=== PATIENT | female | born 1950 | race Caucasian/White ===

== ENCOUNTER 2022-02-10 05:26 | Inpatient (IN) | payer OTHER ==
[2022-02-04 10:37] LABS: CLARITY,URINE SLIGHTLY CLOUDY (Clear); COLOR,URINE YELLOW (Yellow); GLUCOSE, URINE NEGATIVE (Neg); KETONES,URINE NEGATIVE (Neg); LEUKOCYTE ESTERASE ,URINE NEGATIVE (Neg); NITRITES, URINE NEGATIVE (Neg); OCCULT BLOOD,URINE NEGATIVE (Neg); PH,URINE 6.5 (4.8-8.0); PROTEIN,URINE NEGATIVE (Neg); UROBILINOGEN,URINE 0.2 E.U/dL (0.2-1.0)
[2022-02-04 10:39] LABS: BASOPHILS # (AUTO) 0.1 X10'3 (0-0.2); BASOPHILS % (AUTO) 0.9 % (0-1); EOSINOPHILS # (AUTO) 0.1 X10'3 (0-0.9); EOSINOPHILS % (AUTO) 0.8 % (0-6); LYMPHOCYTES # (AUTO) 2.6 X10'3 (1.1-4.8); LYMPHOCYTES % (AUTO) 43.7 % (21-51); MEAN CORPUSCULAR HEMOGLOBIN 31.2 PG (27.0-31.0); MEAN CORPUSCULAR HGB CONC 33.6 g/dL (33.0-36.5); MEAN CORPUSCULAR VOLUME 92.8 FL (78-98); MEAN PLATELET VOLUME 10.4 FL (7.4-10.4); MONOCYTES # (AUTO) 0.6 X10'3 (0-0.9); MONOCYTES % (AUTO) 10.5 % (2-12); NEUTROPHILS # (AUTO) 2.6 X10'3 (1.8-7.7); NEUTROPHILS % (AUTO) 44.1 % (42-75); PRE OP HEMATOCRIT 43.6 % (35.0-45.0); PRE OP HEMOGLOBIN 14.7 g/dL (12.0-16.0); PRE OP PLATELET COUNT 164 X10'3 (140-440); RED CELL DISTRIBUTION WIDTH 13.7 % (11.5-14.5)
[2022-02-04 10:51] LABS: UA COLLECTION TYPE NON-SPECIFIED
[2022-02-04 10:57] LABS: SQUAMOUS EPITHELIAL CELL,UR FEW /LPF (FEW)
[2022-02-04 11:01] LABS: AMORPHOUS PHOSPHATES 3+; BACTERIA,URINE FEW /HPF (Neg); RBC,URINE 0-2 /HPF (0-2); WBC,URINE 0-4 /HPF (0-4)
[2022-02-04 11:03] LABS: ALBUMIN 3.8 G/DL (3.4-5.0); ALBUMIN/GLOBULIN RATIO 1.3 (1.1-1.5); ALKALINE PHOSPHATASE 124 IU/L (46-116); BLOOD UREA NITROGEN 19 MG/DL (7-18); BUN/CREATININE RATIO 18.3 (6.6-38.0); CALCIUM 9.3 MG/DL (8.5-10.1); CHLORIDE 105 MMOL/L (99-107); CREATININE 1.04 MG/DL (0.40-0.90); PRE OP ALT 44 U/L (30-65); PRE OP ANION GAP 10 (8-16); PRE OP AST 35 U/L (10-37); PRE OP BILIRUB, TOTAL 0.5 MG/DL (0.0-1.0); PRE OP GLUCOSE 88 MG/DL (70-104); PRE OP POTASSIUM 4.1 MMOL/L (3.4-5.1); PRE OP SODIUM 145 MMOL/L (135-145); TOTAL CARBON DIOXIDE 29.9 MMOL/L (24-32); TOTAL PROTEIN 6.8 G/DL (6.4-8.2); eGFR 52 ML/MIN
[~2022-02-10] VITALS: Ht 149.9 cm; Wt 70.0 kg
[2022-02-10] VITALS (21 sets, daily range): BP systolic 90–135; BP diastolic 41–84
[~2022-02-10 05:26] MED LIST: BUPR-344 PO; BUPROPION PO SCH; DILT-88 PO; HYDROmorphone 1 mg/ml syringe IV PRN; HYDROmorphone inj. 0.5 MG/0.5 ML DISP.SYRIN IV PRN; LEVO50TA8 PO; QUIN20TA39 PO; QUINAPRIL HCL PO SCH; SERT-434 PO; acetaminophen 325mg tablet PO PRN; ascorbic acid 500mg tablet PO SCH; aspirin 325mg tablet PO SCH; bisacodyl 10mg suppository rectal RC PRN; diphenhydrAMINE 25mg capsule PO PRN; gabapentin 300mg capsule PO SCH; magnesium hydroxide 30ml (MOM) UD suspension PO PRN; multivitamins, therapeutics tablet PO SCH; naloxone 0.4 mg/ml inj IV PRN; non-formulary drug (Diltiazem HCl (Diltiazem 24Hr Cd) 1 CAP) PO SCH; non-formulary drug (Levothyroxine Sodium 1 TAB) PO SCH; non-formulary drug (Sertraline HCl 1.5 TAB) PO SCH; ondansetron/PF 4mg/2ml inj IV PRN; potassium cl 20mEq in 1/2 NS 1,000 ML IV SCH; ringers solution, lacted 1,000 ML IV SCH; sennosides 8.6mg tablet PO SCH
[2022-02-10] MEDS ORDERED: vancomycin/NS 1 GM in NS 250 ML IV ONE (05:30)
[2022-02-10] MEDS ORDERED: oxyCODONE SR 10mg (sust. release) tab PO ONE (05:30)
[2022-02-10] MEDS ORDERED: famotidine 20mg tablet PO ONE (05:30)
[2022-02-10] MEDS ORDERED: ceFAZolin inj. 2,000 MG in dextrose 5%-water 100 ML IV ONE (05:30)
[2022-02-10] MEDS ORDERED: LIDOcaine 1% (10mg/ml) 2ml vial ONE (05:54)
[2022-02-10] MEDS ORDERED: ketorolac trometh. 30mg/ml inj. ONE (07:00)
[2022-02-10] MEDS ORDERED: cloNIDine hcl/PF 100mcg/ml inj ONE (07:01)
[2022-02-10] MEDS ORDERED: ROPIVAcaine 0.5% (5mg/ml) 30ml vial ONE ×2 (07:01→09:44)
[2022-02-10] MEDS ORDERED: epiNEPHrine 1 mg/ml inj ONE (07:01)
[2022-02-10] MEDS ORDERED: tranexamic acid 100mg/ml inj. ONE (07:27)
[2022-02-10] MEDS ORDERED: vancomycin 1,000mg inj ONE (07:28)
[2022-02-10] MEDS ORDERED: oxyCODONE/APAP 10/325mg tablet PO PRN ×2 (07:45)
[2022-02-10] MEDS ORDERED: HYDROmorphone 1 mg/ml syringe IV PRN (07:45)
[2022-02-10] MEDS ORDERED: ondansetron/PF 4mg/2ml inj IV PRN ×2 (07:45→10:00)
[2022-02-10] MEDS ORDERED: magnesium hydroxide 30ml (MOM) UD suspension PO PRN (07:45)
[2022-02-10] MEDS ORDERED: diphenhydrAMINE 25mg capsule PO PRN ×2 (07:45)
[2022-02-10] MEDS ORDERED: naloxone 0.4 mg/ml inj IV PRN (07:45)
[2022-02-10] MEDS ORDERED: bisacodyl 10mg suppository rectal RC PRN (07:45)
[2022-02-10] MEDS ORDERED: acetaminophen 325mg tablet PO PRN (07:45)
[2022-02-10] MEDS ORDERED: HYDROmorphone inj. 0.5 MG/0.5 ML DISP.SYRIN IV PRN (07:45)
[2022-02-10] MEDS: gabapentin 300mg capsule PO SCH ×3 (08:00→20:34)
[2022-02-10] MEDS ORDERED: fentaNYL/PF 50MCG/1 ML 2ML syringe ONE (08:23)
[2022-02-10] MEDS ORDERED: MIDAZolam 1 MG/ML 5ML VIAL ONE (08:23)
[2022-02-10] MEDS ORDERED: diphenhydrAMINE 50 mg/ml inj ONE (09:08)
[2022-02-10] MEDS ORDERED: ePHEDrine 50MG/ML INJ. ONE (09:09)
[2022-02-10] MEDS ORDERED: proCHLORperazine 10 MG/2 ml inj IV PRN (10:00)
[2022-02-10] MEDS ORDERED: meperidine/PF 25mg/ml syringe IV PRN ×3 (10:00)
[2022-02-10] MEDS ORDERED: morphine 2 MG/ML inj. syringe IV PRN (10:00)
[2022-02-10] MEDS ORDERED: ringers solution, lacted 1,000 ML IV SCH (10:00)
[2022-02-10] MEDS ORDERED: morphine 4 MG/ML inj SYRINge IV PRN (10:00)
[2022-02-10] MEDS ORDERED: ROPIVAcaine 0.2% (10 MG/5 ML) BOLUS INJECTION ADDCANAL PRN (10:05)
--- NOTE | 2022-02-10 10:52 | NUR ---
Received from OR via [facility] ED WITH RADHA , accompanied by Anesthesiologist NELSON and report given by Anesthesiolgist. PATIENT WITH 18G PIV IN RIGHT HAND RUNNING LR AT 100. DENIES PAIN AT THIS TIME. KNE WRAP TO LEFT KNEE , POWDER PACK PRESENT. SITE FOR ON Q PRESENT HOWEVER JODY DRESSING IS ON BUT NOT ATTACHED TO ANYTHING. THOROUGHLY CLEANED OPEN VAC SITE, WRAPPED IN FOIL AND ETOH OF SWAB CONTAINER. CALLED HISTORICAL GUIDE ASHLEY X2 TO NOTIFY MARIAM TORIBIO RN. Addendum: 02/10/22 at 1122 by Kaz Arzate RN, RN Amended: Links added.
--- NOTE | 2022-02-10 11:47 | NUR ---
MD BARBARA LAGUNAS ON PATIENT IN BETWEEN SURGERY. INFORMED OF LACK ON JODY VAC LEFT OPEN DRESSING. INFORMED HIM OF CHANGING OF THE KNEE DRESSING AND THEN ATTACHING THE JODY. AFFIRMED DECISION. Addendum: 02/10/22 at 1148 by Kaz Arzate RN, RN Amended: Links added.
[2022-02-10] MEDS: ROPIVAcaine 0.2%/PF PUMP/bolus 545 ML ADDCANAL SCH (11:52)
--- NOTE | 2022-02-10 12:04 | NUR ---
Patient in room [facility]TH[facility] 4024A. I have received report from ZANDRA GARCIA FROM [facility] and had the opportunity to ask questions and assume patient care.
--- NOTE | 2022-02-10 12:12 | NUR ---
PATIENT HAS MET ALL CRITERIA FOR TRANSFER TO THE [facility]TH[facility] FLOOR. VSS. DRESSINGS INTACT. BED LOW, CALL LIGHT PRESENT AND 2 RAILS UP. RN PRESENT TO ACCEPT CARE OF PATIENT AND REPORT HAS BEEN CALLED. ALL QUESTIONS ANSWERED TO ACCEPTING ZANDRA JO. VSS PATIENT DENIES PAIN. HELPED SET UP ALL LINES AND LOWER BED ETC. ONE BAG OF BELONGINGS SENT WITH PATIENT. GLASSES IN LABELED CONTAINER SENT WELL. Addendum: 02/10/22 at 1234 by Kaz Cobian - ZANDRA RN Amended: Links added.
[2022-02-10] MEDS ORDERED: tranexamic acid inj. 700 MG in normal saline 100ml IV soln 93 ML IV ONE (13:00)
[2022-02-10 13:20] LABS: BASOPHILS % (AUTO) 0.5 % (0-1); EOSINOPHILS % (AUTO) 0.1 % (0-6); HEMATOCRIT 37.3 % (35.0-45.0); HEMOGLOBIN 12.5 g/dl (12.0-16.0); LYMPHOCYTES # (AUTO) 1.1 X10'3 (1.1-4.8); LYMPHOCYTES % (AUTO) 22.5 % (21-51); MEAN CORPUSCULAR HEMOGLOBIN 31.4 PG (27.0-31.0); MEAN CORPUSCULAR HGB CONC 33.4 g/dL (33.0-36.5); MEAN CORPUSCULAR VOLUME 94.2 FL (78-98); MEAN PLATELET VOLUME 10.3 FL (7.4-10.4); MONOCYTES # (AUTO) 0.2 X10'3 (0-0.9); MONOCYTES % (AUTO) 4.7 % (2-12); NEUTROPHILS # (AUTO) 3.6 X10'3 (1.8-7.7); NEUTROPHILS % (AUTO) 72.2 % (42-75); PLATELET COUNT 123 X10'3 (140-440); RED BLOOD COUNT 3.96 X10'6 (4.20-5.60)
[2022-02-10 13:34] LABS: ANION GAP 5 (8-16); CHLORIDE 109 MMOL/L (99-107); SODIUM 142 MMOL/L (135-145); TOTAL CARBON DIOXIDE 28.1 MMOL/L (24-32)
[2022-02-10] MEDS: potassium cl 20mEq in 1/2 NS 1,000 ML IV SCH ×3 (16:58→23:49)
[2022-02-10] MEDS: cefazolin/dext.iso 2gm/100ml 100 ML IV SCH ×2 (18:00→23:53)
--- NOTE | 2022-02-10 18:45 | NUR ---
Patient in room [facility]TH[facility] 4024. I have received report from Marisa DE PAZ and had the opportunity to ask questions and assume patient care.
--- NOTE | 2022-02-10 18:50 | NUR ---
Problems reprioritized. Patient report given, questions answered & plan of care reviewed with ZANDRA VARMA.
[2022-02-10] MEDS: celeCOXIB 100mg capsule PO SCH (20:33)
[2022-02-10] MEDS: buPROPion SR 150mg tablet PO SCH (20:34)
[2022-02-10] MEDS ORDERED: sennosides 8.6mg tablet PO SCH (21:00)
[2022-02-10] MEDS: vancomycin/NS 1 GM ADD-VANTAGE 250 ML IV SCH (21:15)
[2022-02-11 02:00] VITALS: BP 112/53
--- NOTE | 2022-02-11 03:21 | NUR ---
Reported off to Codi DE PAZ.
--- NOTE | 2022-02-11 03:30 | NUR ---
Received report and assumed care of pt. Shaylee forgot to put in a physical assm't so, I will complete one before shift ends as to not wake pt right now. Addendum: 02/11/22 at 8915 by Melany Mcclelland RN OOPS- I found the physical assm't that Shaylee did and documented under another intervention tab-sorry!
--- NOTE | 2022-02-11 06:12 | NUR ---
Patient in room [facility]TH[facility] 4024. I have received report from ZANDRA Mosley and had the opportunity to ask questions and assume patient care.
[2022-02-11 06:15] VITALS: BP 109/50
[2022-02-11 06:17] LABS: BASOPHILS % (AUTO) 0.1 % (0-1); EOSINOPHILS % (AUTO) 0 % (0-6); HEMATOCRIT 33.4 % (35.0-45.0); HEMOGLOBIN 11.3 g/dl (12.0-16.0); LYMPHOCYTES % (AUTO) 12.7 % (21-51); MEAN CORPUSCULAR HEMOGLOBIN 31.3 PG (27.0-31.0); MEAN CORPUSCULAR HGB CONC 33.8 g/dL (33.0-36.5); MEAN CORPUSCULAR VOLUME 92.6 FL (78-98); MONOCYTES # (AUTO) 0.7 X10'3 (0-0.9); MONOCYTES % (AUTO) 9.4 % (2-12); NEUTROPHILS % (AUTO) 77.8 % (42-75); PLATELET COUNT 108 X10'3 (140-440); RED BLOOD COUNT 3.61 X10'6 (4.20-5.60); RED CELL DISTRIBUTION WIDTH 13.6 % (11.5-14.5); WHITE BLOOD COUNT 7.7 X10'3 (4.5-11.0)
--- NOTE | 2022-02-11 06:32 | NUR ---
Patient offered pain med prior to working with PT but patient declines at this time and states ONQ@10 is effective.
[2022-02-11] MEDS: celeCOXIB 100mg capsule PO SCH (07:38)
[2022-02-11] MEDS: vancomycin/NS 1 GM ADD-VANTAGE 250 ML IV SCH (07:39)
[2022-02-11] MEDS: buPROPion SR 150mg tablet PO SCH (07:39)
[2022-02-11] MEDS: potassium cl 20mEq in 1/2 NS 1,000 ML IV SCH (07:39)
[2022-02-11] MEDS: gabapentin 300mg capsule PO SCH ×2 (07:39→12:50)
[2022-02-11] MEDS ORDERED: ascorbic acid 500mg tablet PO SCH (08:00)
[2022-02-11] MEDS ORDERED: sertraline 50mg tablet PO SCH (08:00)
[2022-02-11] MEDS ORDERED: multivitamins, therapeutics tablet PO SCH (08:00)
[2022-02-11] MEDS ORDERED: diltiazem CD 120mg capsule (once-daily) PO SCH ×2 (08:00)
[2022-02-11] MEDS ORDERED: lisinopril 20mg tablet PO SCH (08:00)
[2022-02-11] MEDS ORDERED: levoTHYROXINE 25mcg tablet PO SCH (08:00)
[2022-02-11] MEDS ORDERED: aspirin 325mg tablet PO SCH (08:30)
[2022-02-11] MEDS ORDERED: enoxaparin 40mg/0.4ml syringe SUBCUT SCH (09:00)
--- NOTE | 2022-02-11 09:28 | NUR ---
ONQ ball turned back to 8ml/hr. Patient tolerating well. Denies any pain or discomfort. Patient is waiting to work with PT a second time prior to DC as instructed by PT.
[2022-02-11 10:21] VITALS: BP 101/50
[2022-02-11 14:00] VITALS: BP 95/39
[2022-02-11 16:40] VITALS: BP 126/57
[2022-02-11] MEDS: ROPIVAcaine 0.2%/PF PUMP/bolus 545 ML ADDCANAL SCH (16:57)
--- NOTE | 2022-02-11 17:25 | NUR ---
Discussed with patient and spouse discharge instructions. Patient and spouse verbalize understanding of teaching. New ONQ ball attached and new extra ebony dressing given to patient. Patient ready for DC but wanting to eat dinner before DC.
[2022-02-11 18:00] VITALS: BP 126/57
--- NOTE | 2022-02-11 18:26 | NUR ---
Patient dc'd with all personal belongings escorted out in wheelchair accompanied b y 1 staff and pt spouse.
== END 2022-02-11 18:20 | disposition home or self-care (01) | DRG 470 ==
LOC: PAS 05:26 → ORTHO 4S 07:47
PROVIDERS: ADMIT Orthopaedic Surgery; ATTEND Orthopaedic Surgery
PROC: 3E0T3BZ Introduction of Anesthetic Agent into Peripheral Nerves and Plexi, Percutaneous Approach (ICD-10-PCS; 2022-02-10)
PROC: 0SRD069 Replacement of Left Knee Joint with Oxidized Zirconium on Polyethylene Synthetic Substitute, Cemented, Open Approach (ICD-10-PCS; principal; 2022-02-10 08:33)
DX: M17.12 Unilateral primary osteoarthritis, left knee (principal); Z20.822 Contact with and (suspected) exposure to COVID-19
CPT/HCPCS: 36415; 73560; 80051; 80053; 81001; 82948; 84443; 85025; 86885; 86900; 86901; 87081; 97110; 97116; 97161; 97530; A4215; A6253; A6449; A7000; C1713; C1776; G0378; J0171; J0690; J0735; J1200; J1650; J1885; J2250; J2795; J3010; J3370; J3480; J3490; J7040; J7060; J7120

== ENCOUNTER 2023-04-09 17:22 | Emergency (ER) | payer OTHER ==
[~2023-04-09] VITALS: Ht 149.9 cm; Wt 71.6 kg
[~2023-04-09 17:22] MED LIST changes: -BUPROPION PO SCH; -HYDROmorphone 1 mg/ml syringe IV PRN; -HYDROmorphone inj. 0.5 MG/0.5 ML DISP.SYRIN IV PRN; -QUINAPRIL HCL PO SCH; -acetaminophen 325mg tablet PO PRN; -ascorbic acid 500mg tablet PO SCH; -aspirin 325mg tablet PO SCH; -bisacodyl 10mg suppository rectal RC PRN; -diphenhydrAMINE 25mg capsule PO PRN; -gabapentin 300mg capsule PO SCH; -magnesium hydroxide 30ml (MOM) UD suspension PO PRN; -multivitamins, therapeutics tablet PO SCH; -naloxone 0.4 mg/ml inj IV PRN; -non-formulary drug (Diltiazem HCl (Diltiazem 24Hr Cd) 1 CAP) PO SCH; -non-formulary drug (Levothyroxine Sodium 1 TAB) PO SCH; -non-formulary drug (Sertraline HCl 1.5 TAB) PO SCH; -ondansetron/PF 4mg/2ml inj IV PRN; -potassium cl 20mEq in 1/2 NS 1,000 ML IV SCH; -ringers solution, lacted 1,000 ML IV SCH; -sennosides 8.6mg tablet PO SCH
[2023-04-09 18:30] VITALS: BP 151/87; PULSE 83; RESP 18; TEMP 98.5; O2SAT 96
[2023-04-09] MEDS ORDERED: amox tr/potassium clavulanate 875/125mg TAB PO ONE (19:15)
[2023-04-09] MEDS ORDERED: AMOX-580 PO (19:17)
[2023-04-09] MEDS ORDERED: LIDOcaine/epinephrine/tetracaine TOPICAL sol 3 ML syringe TOP ONE (19:20)
[2023-04-09] MEDS ORDERED: bacitracin 15gm ointment TP ONE (19:20)
== END 2023-04-09 19:54 | disposition home or self-care (01) ==
LOC: ER 17:23
DX: S61.011A Laceration without foreign body of right thumb without damage to nail, initial encounter (principal); I10 Essential (primary) hypertension; E03.9 Hypothyroidism, unspecified; Z79.2 Long term (current) use of antibiotics; Z79.899 Other long term (current) drug therapy; W54.0XXA Bitten by dog, initial encounter; Y93.89 Activity, other specified; Y92.89 Other specified places as the place of occurrence of the external cause; Y99.8 Other external cause status
CPT/HCPCS: 99284; J3490; J7030; A6449